=== PATIENT | female | born 1995 | race Caucasian/White ===

== ENCOUNTER 2025-05-12 17:36 | Emergency (ER) | payer OTHER ==
[~2025-05-12] VITALS: Ht 149.9 cm; Wt 49.9 kg
[2025-05-12 19:20] LABS: PLATELET COUNT (AUTO) 328 K/uL (150-450); RED BLOOD CELL COUNT(AUTO) 4.71 MIL/uL (4.0-5.2); RED CELL DISTRIBUTION WIDTH 13.5 % (11.5-15.0); WHITE BLOOD COUNT (AUTO) 5.7 K/uL (4.3-11.0)
[2025-05-12] MEDS ORDERED: ONDANSETRON HCL/PF 4 MG/2 ML VIAL ONE (19:23)
[2025-05-12] MEDS ORDERED: METOCLOPRAMIDE HCL 10 MG/2 ML VIAL ONE (19:23)
[2025-05-12] MEDS ORDERED: KETOROLAC TROMETHAMINE 15 MG/ML VIAL ONE (19:23)
[2025-05-12] MEDS ORDERED: ACETAMINOPHEN ES 500 MG TABLET ONE (19:24)
[2025-05-12] MEDS: IV NS 0.9% 1,000 ML BAG IV ONE (19:25)
[2025-05-12 19:27] LABS: CALCIUM, SERUM 8.9 mg/dL (8.5-10.1); CREATININE 0.7 mg/dL (0.6-1.3); SODIUM SERUM 135.0 mmol/L (136-145); UREA NITROGEN, BLOOD 6.0 mg/dL (7-18)
[2025-05-12 19:41] LABS: APPEARANCE,URINE CLEAR (CLEAR); BLOOD, URINE Trace-intact Ery/uL (NEGATIVE); LEUKOCYTE ESTERASE ,URINE Negative (NEGATIVE); UGLUCOSE Negative (NEGATIVE)
[2025-05-12] MEDS: METOCLOPRAMIDE HCL 10 MG/2 ML VIAL IV ONE (19:41)
[2025-05-12] MEDS: KETOROLAC TROMETHAMINE 15 MG/ML VIAL IV ONE (19:41)
[2025-05-12] MEDS: ONDANSETRON HCL/PF 4 MG/2 ML VIAL IVP ONE (19:42)
[2025-05-12] MEDS: ACETAMINOPHEN ES 500 MG TABLET PO ONE (19:42)
[2025-05-12 19:43] LABS: NITRITE, URINE NEGATIVE (NEGATIVE); PREGNANCY TEST URINE QUAL NEGATIVE (NEGATIVE)
[2025-05-12 19:44] LABS: ADD URINE CULTURE NO; SQUAMOUS EPITHELIAL CELL,UR Few /HPF (None Seen)
[2025-05-12] MEDS ORDERED: METO5TAB87 PO (20:21)
[2025-05-12] MEDS ORDERED: DIPH25CA83 PO (20:21)
[2025-05-12] MEDS ORDERED: IBUP-1953 PO (20:21)
[2025-05-12] MEDS ORDERED: ONDA4TAB5 PO (20:21)
[2025-05-12 20:36] VITALS: BP 110/61; TEMP 98.7; O2SAT 98
== END 2025-05-12 20:41 | disposition home or self-care (01) ==
LOC: ER 17:51
DX: U07.1 COVID-19 (principal); R51.9 Headache, unspecified; R11.2 Nausea with vomiting, unspecified; R10.9 Unspecified abdominal pain; Z91.048 Other nonmedicinal substance allergy status
CPT/HCPCS: 99284; 96374; 96375; 96361; 87426; 87804 ×2; 85025; 80048; 84703; 81001; 36415; J1885; J1200; J2765; J2405; J7030